=== PATIENT | female | born 1960 | race Two or more races ===

== ENCOUNTER 2020-04-09 04:27 | Day surgery (SDC) | payer BC, OTHER ==
[2020-04-08 09:20] VITALS: BMI 22.4
[~2020-04-09 04:27] MED LIST: DEXAMETHASONE SOD PHOSPHATE 10 MG/1 ML VIAL IVPUSH ONE; IOHEXOL 180 MG/1 ML ML IJ ONE; LIDOCAINE HCL 1% PRESERVATIVE FREE - 30ML VIAL IJ ONE
[2020-04-09] MEDS ORDERED: LIDOCAINE HCL/PF 1% SDV 5ML VIAL ONE ×2 (08:49→08:50)
[2020-04-09 11:15] VITALS: TEMP 98.5
[2020-04-09] MEDS ORDERED: IOHEXOL 180 MG/1 ML ML IJ ONE (16:45)
[2020-04-09] MEDS ORDERED: LIDOCAINE HCL 1% PRESERVATIVE FREE - 30ML VIAL IJ ONE (16:45)
[2020-04-09] MEDS ORDERED: DEXAMETHASONE SOD PHOSPHATE 10 MG/1 ML VIAL IVPUSH ONE (16:45)
[2020-04-09] MEDS ORDERED: BUPIVACAINE HCL/PF 0.75% 10 ML VIAL ONE (16:49)
[2020-04-09] MEDS ORDERED: DEXAMETHASONE SOD PHOSPHATE/PF 10 MG/ML SDV ONE (16:49)
[2020-04-09] MEDS ORDERED: LIDOCAINE HCL/PF 2% SDV 5ML VIAL ONE (16:52)
[2020-04-09 17:43] VITALS: BP 162/62; PULSE 65
--- NOTE | 2020-04-14 11:45 | PROC ---
Procedure Note Procedure: Pre procedure Diagnosis: Lumbar Spinal Stenosis/ Lumabr radiculopathy Post Procedure Diagnosis: same Anesthesia: local Procedure Performed: L5-S1 Interlaminar epidural steroid injection under fluoroscopic guidance After the risks and benefits were explained, informed consent was obtained. The patient was then taken to the procedure room and positioned prone on the procedure table. Time out was performed. Interlaminar space was identified using fluoroscopy. The skin was prepped and draped in the usual sterile fashion. The skin and soft tissues were anesthetized using 1% lidocaine. Under intermittent fluoroscopic guidance, a #22 gauge 3.5 inch T[place] was successfully directed into the posterior epidural space at the L5-S1 level, using a posterior approach and loss of resistance technique. Needle placement was then confirmed with the injection of Omnipaque 180. Epidural flow was noted and no vascular uptake was noted. A 5 cc cocktail of 2 cc normal saline and 2 cc Dexamethasone 10 mg/mL and 1 cc of 1% lidocaine was then injected at the site. The patients response was again monitored and sensorimotor examination remained unchanged. The patient tolerated the procedure well and there were no complications. The patient was taken to the post procedure recovery area in good condition. Vital signs remained stable before, and after the procedure. The patient was given oral follow-up instructions. The patient was given a follow up appointment with me in the near future. Nicholas Schafer DO
== END 2020-04-09 17:20 | disposition home or self-care (01) ==
LOC: JASU-SURG 04:27
PROVIDERS: ATTEND Pain Medicine Pain Medicine
PROC: B01BZZZ Fluoroscopy of Spinal Cord (ICD-10-PCS; 2020-04-09)
PROC: 3E0R3BZ Introduction of Anesthetic Agent into Spinal Canal, Percutaneous Approach (ICD-10-PCS; principal; 2020-04-09 13:00)
DX: M48.061 Spinal stenosis, lumbar region without neurogenic claudication (principal); M54.16 Radiculopathy, lumbar region
CPT/HCPCS: 76000-TC-FY; 82962; J1100